=== PATIENT | female | born 1975 | race Two or more races ===

== ENCOUNTER 2021-12-21 12:43 | Emergency (ER) | payer OTHER ==
[~2021-12-21] VITALS: Ht 154.9 cm; Wt 57.6 kg
== END 2021-12-21 16:36 | disposition home or self-care (01) ==
LOC: ER 12:43
DX: I87.2 Venous insufficiency (chronic) (peripheral) (principal)

== ENCOUNTER 2025-02-15 08:59 | Outpatient (CLI) | payer OTHER | END 2025-02-15 09:01 | disposition home or self-care (01) | LOC: MAMO-SONO 08:59 | PROVIDERS: ATTEND Specialist | DX: N64.4 Mastodynia (principal) ==